=== PATIENT | female | born 1945 | race Caucasian/White ===

== ENCOUNTER 2023-03-21 10:30 | Outpatient (OUT) | payer MEDICARE, SELFPAY ==
--- NOTE | 2023-03-21 10:30 | VEIN_ITS ---
The [address] [address] Patient Name: SHARON JENSEN MRN: [id number] date: 1945 Sex: F Assigned Patient Location: Current Patient Location: Accession/Order Number: [id number] Exam Date: 03/21/2023 10:30 Report Date: 03/21/2023 11:47 At the request of: NINI OVALLE Procedure: VC INJ Foam Sclerosant WUS CHIEF RADIATION THERAPIST PROCEDURE: VC INJ Foam Sclerosant WUS CHIEF RADIATION THERAPIST COMPARISON: None. HISTORY: painful varicose veins I83.813 Pre-operative Diagnosis: CEAP class C6 venous insufficiency with pain, tenderness, edema and incompetent branch saphenous vein(s), chronic venous insufficiency left leg secondary to venous incompetence Post-operative Diagnosis: CEAP class C6 venous insufficiency with pain, tenderness, edema and incompetent branch saphenous vein(s), chronic venous insufficiency left leg secondary to venous incompetence Procedure Performed: 1. Ultrasound-guided microfoam chemical ablation with Varithenaregistered 2. Intraoperative ultrasound guidance Physician: Yovani Short M.D. Anesthesia: None Indications for Procedure: 77 year old female. Symptoms including chronic lower extremity pain, swelling, and extensive skin wounds ulceration for many years despite conservative medical therapy including medical compression stockings, exercise and analgesics. Prior procedures include endovenous laser ablation and microfoam chemical ablation. Multiple incompetent varicosities of the left leg. Duplex scan showed reflux and enlarged diameters up to 6 mm. The patient underwent informed consent including management options where the complications of infection, bleeding, pain, and skin injury were discussed. Particular attention was spent discussing thrombus extension and deep vein thrombosis as well as the possibility of pulmonary embolus and treatment with oral or injectable blood thinners. Procedure: The patient walked to the procedure room. All applicable staff donned appropriate apparel. A procedure timeout was performed to confirm correct patient, correct extremity, correct procedure, and correct room set-up including presence of all applicable supplies, devices, and drugs. A duplex ultrasound, performed by myself confirmed the location and incompetence of branch saphenous varicosities and their course was marked on the skin together with the dilated tributaries. The extent of treatment of the vein and the associated varicosities was determined through ultrasound mapping. The skin was prepped and then punctured with a butterfly needle and advanced under ultrasound guidance. The Varithenaregistered canister was activated and the canister was primed and purged as required in the instructions for use. Varithenaregistered was drawn into a sterile syringe. Varithenaregistered was slowly administered at 0.5-1.0 cc/second with close observation by ultrasound of its course in the vessels. Total volume utilized was: 13 mL (6 mL within a 5 mm varicosity of the distal medial lower left leg; 7 mL within a 6 mm varicosity of the mid medial upper leg). Following administration of Varithenaregistered the leg was elevated and the patient was asked to repeatedly dorsiflex the ankle to limit flow of Varithenaregistered into perforating veins. Once appropriate spasm had been confirmed in the treated veins, the vascular catheter was removed from the leg and light pressure was applied over the puncture site for hemostasis. The common femoral and deep superficial veins were then evaluated for flow and compressibility prior to dressing placement. The lower extremity was kept elevated at 45 degrees above the horizontal and cording material was applied over the saphenous segments and tributaries to allow for eccentric compression over the target vessels including the targeted saphenous vein(s). A multilayer dressing was applied consisting of foam pads, coban and thigh-high 20-30 mm Hg compression elastic support hose were placed on the patient. The leg was lowered only after compression had been applied and the patient was immediately ambulatory. The patient ambulated 10 minutes under supervision and was without apparent concerns at time of release. Post-care instructions include advising patient to keep post-treatment bandages in place and dry for 48 hours, avoid extended periods of inactivity, avoid heavy exercise for one week, wear compression stockings on the treated leg continuously for two weeks, to walk daily for 10 minutes over the next month. The patient was instructed to take an anti-inflammatory medicine as needed and to follow up for color duplex scan of the Saphenous veins, the treated branch saphenous varicosities, the adjacent deep veins, and additional treatment within 7 days. PERSONNEL: Robson Proctor RN Electronically authenticated by: YOVANI SHORT Date: 03/21/2023 11:47
== END 2023-03-22 00:01 | disposition home or self-care (01) ==
LOC: VC 04-29 12:54
PROVIDERS: PCP Radiology Diagnostic Radiology; Visit Provider Radiology Diagnostic Radiology
DX: I83.813 Varicose veins of bilateral lower extremities with pain (principal)
CPT/HCPCS: 36466

== ENCOUNTER 2023-03-26 12:58 | Outpatient (OUT) | payer MEDICARE, SELFPAY ==
--- NOTE | 2023-03-26 | VEIN_ITS ---
Patient: SHARON JENSEN Exam Date: 03/26/2023 : 1945 Gender:F Ordering : DR NINI OVALLE M.D. Admission #: [id number] Family : Order #: [id number] CLICK HERE TO VIEW EXAM RADIOLOGY REPORT PROCEDURE: [facility] - OFFICE VISIT FOLLOW UP COMPARISON: None. PROGRESS NOTES: The patient reports that there is continuing healing of lower left leg extensive wounds. There has been interval reduction in varicosities. The patient has followed our recommendations to walk 20-30 minutes once or twice per day since the procedure. Physical exam demonstrates no evidence of postprocedural infection, ongoing healing of extensive skin wounds, and decrease in varicosities of the left leg. Persistent varicosities are identified along the right leg. Review of the ultrasound performed the same day demonstrates occlusive thrombus extending throughout the treated vein, see separate report, consistent with a successful ablation. No thrombus extending into or beyond the saphenofemoral junction. The patient expressed a desire to proceed with treatment of right lower extremity dilated and incompetent veins. The patient was informed that treatment was a process and would require approximately several procedures/sessions. IMPRESSION: 1. Successful ablation of the left lower extremity treated incompetent branch saphenous varicosities. 2. Persistent incompetent varicose veins and right lower extremity symptoms PLAN: Treatment of right lower extremity beginning with endovenous laser ablation of right great saphenous vein. Nurse notes, history and physical were reviewed and confirmed, see attached forms. The nurse was present throughout the physical exam and consultation Dictated by: Yovani Short M.D. on 03/26/2023 at 14:27 Approved by: Yovani Short M.D. on 03/26/2023 at 14:30
--- NOTE | 2023-03-26 | VEIN_ITS ---
Patient: SHARON JENSEN Exam Date: 03/26/2023 : 1945 Gender:F Ordering : DR NINI OVALLE M.D. Admission #: [id number] Family : Order #: [id number] CLICK HERE TO VIEW EXAM RADIOLOGY REPORT PROCEDURE: VC EXT VENOUS LT LIMITED COMPARISON: None. INDICATIONS: Phlebitis of superficial veins of lt lower extremity I80.02 TECHNIQUE: Lower extremity jara scale and Duplex Doppler evaluation of the deep venous system from the inguinal ligament through the calf veins. FINDINGS: REGION: Left lower extremity. THROMBI: Negative for DVT. Chemically induced thrombus in varicose veins left lower extremity. COMPRESSIBILITY: Non-compressible segments. FLOW: Areas of no flow. OTHER: Patent varicose vein mid medial thigh measures 4.2 mm with 0.6s reflux. Patent lower leg GSV 4.5mm with 4.6s reflux. CONCLUSION: 1. Successful post ablation occlusion of treated branch saphenous varicosities within the left leg. Dictated by: Yovani Short M.D. on 03/26/2023 at 14:26 Approved by: Yovani Short M.D. on 03/26/2023 at 14:27
== END 2023-03-26 12:59 ==
LOC: VC 12:58
PROVIDERS: PCP Radiology Diagnostic Radiology; Visit Provider Radiology Diagnostic Radiology
DX: I80.02 Phlebitis and thrombophlebitis of superficial vessels of left lower extremity (principal)
CPT/HCPCS: 93971; G0463

== ENCOUNTER 2023-07-24 14:32 | Outpatient (OUT) | payer MEDICARE, SELFPAY ==
--- NOTE | 2023-07-24 14:36 | VEIN_ITS ---
The [address] [address] Patient Name: SHARON JENSEN MRN: [id number] date: 1945 Sex: F Assigned Patient Location: Current Patient Location: Accession/Order Number: [id number] Exam Date: 07/24/2023 14:36 Report Date: 07/24/2023 16:18 At the request of: NINI OVALLE Procedure: VC Endovenous Ablation 1VeinRT EXAMINATION: VC Endovenous Ablation 1VeinRT HISTORY: Pain due to varicose veins of bilateral legs I83.813 The risks and benefits of the procedure had been previously discussed, and were rediscussed at length. Informed written consent was obtained. Deedee Childs RN and Iliana Gonzalez RDMS, RVT assisted. Time out procedure was performed. The right lower extremity was prepared and draped in the usual sterile fashion to allow knee flexion in the sterile field. Duplex ultrasound probe was draped in a sterile cover, sterile transmission gel was used. Venous mapping was performed with the areas of dilation and large tributaries marked. The total length was 26 cm from the entry proximal calf to 3 cm below the Saphenofemoral junction. The diameter of the right great saphenous vein ranged from 6.6 mm. A 30 gauge needle and 1% buffered lidocaine was used to anesthetize the entry site. A 4 mm incision was made with a scalpel and the saphenous vein was entered percutaneously under direct ultrasound guidance with a micropuncture set, a single stick was successful in gaining access. A micro-guide wire was inserted and the needle removed. A micro-set including a dilator was inserted over the microwire and the needle and dilator were removed. A guide wire was inserted through the micro-set and guided through the saphenous vein to the saphenofemoral junction. The dilator was removed and an introducer sheath was inserted over the wire until the end of the sheath entered the saphenofemoral junction. The dilator and wire were removed and the 600 micron fiber was introduced and placed and positioned so that it extended beyond the sheath and was 3 cm distal to the saphenofemoral or saphenopopliteal junction. Final position of the fiber was determined by ultrasound guidance and duplex imaging. Tumescent anesthetic was delivered by ultrasound guidance. 200 cc of fluid was delivered along the entire course of the saphenous vein. The solution consisted of 1000 cc of normal saline with 40 mL of 1% lidocaine and 20 mL of sodium bicarbonate. A final positioning check was made. The energy source was turned on by means of the foot pedal and the fiber and sheath were withdrawn. The total number of Joules delivered was 1069. The laser was active for 134 seconds under continuous pulse, average laser use of 8 J. Laser start time 3:42 PM, 07/24/2023. Laser stop time 3:44 PM, 07/24/2023. A duplex ultrasound revealed compressibility and flow at the saphenofemoral junction immediately after the procedure. Hemostasis at the access site was achieved. The skin incision of the saphenous vein was closed with a 4 x 4. A compression stocking was applied. Postop instructions were given. A follow up appointment was recommended and scheduled. The patient tolerated the procedure well. Electronically authenticated by: DEVANTE WEN Date: 07/24/2023 16:18
[2023-07-24] MEDS: LIDOCAINE HCL 1% 100 MG/10 ML MDV INJ (15:14)
[2023-07-24] MEDS: 0.9 % SODIUM CHLORIDE 500 ML, LIDOCAINE HCL 20 ML, SODIUM BICARBONATE 10 MEQ INJ (15:15)
== END 2023-07-24 14:33 | disposition home or self-care (01) ==
LOC: VC 14:32
PROVIDERS: PCP Radiology Diagnostic Radiology; Visit Provider Radiology Diagnostic Radiology
DX: I83.813 Varicose veins of bilateral lower extremities with pain (principal)
CPT/HCPCS: 36478

== ENCOUNTER 2023-08-01 09:55 | Outpatient (OUT) | payer MEDICARE, SELFPAY ==
--- NOTE | 2023-08-01 | VEIN_ITS ---
Patient: SHARON JENSEN Exam Date: 08/01/2023 : 1945 Gender:F Ordering : DR SEBASTIAN KHAN M.D. Admission #: [id number] Family : Order #: [id number] CLICK HERE TO VIEW EXAM RADIOLOGY REPORT PROCEDURE: VC EXT VENOUS RT LMTD COMPARISON: None. INDICATIONS: I80.01 TECHNIQUE: Lower extremity jara scale and Duplex Doppler evaluation of the deep venous system from the inguinal ligament through the calf veins. FINDINGS: REGION: Right lower extremity. THROMBI: Negative for DVT. Heat induced thrombus visualized in the 3.5 cm from the saphenfemoral junction and extends through the treated GSV to mid lower leg at point of insertion. COMPRESSIBILITY: Noncompressibility corresponding to thrombus FLOW: Absent flow corresponding to thrombus CONCLUSION: Post ablation occlusion the right great saphenous vein with heat induced thrombus 3.5 cm from the saphenofemoral junction Dictated by: Sebastian Khan MD on 08/01/2023 at 10:25 Approved by: Sebastian Khan MD on 08/01/2023 at 10:28
--- NOTE | 2023-08-01 | VEIN_ITS ---
Patient: SHARON JENSEN Exam Date: 08/01/2023 : 1945 Gender:F Ordering : DR SEBASTIAN KHAN M.D. Admission #: [id number] Family : Order #: [id number] CLICK HERE TO VIEW EXAM RADIOLOGY REPORT PROCEDURE: [facility] - OFFICE VISIT FOLLOW UP [facility] PROGRESS NOTES: The patient reports no significant problems following intravenous laser ablation of the right great saphenous vein. The patient did not require oral analgesics. The patient has worn her compression wraps. Patient has tried exercise within her abilities. Physical exam demonstrates no areas of bruising or erythema. No evidence of thrombophlebitis. No active ulceration on the right leg. Extensive hemosiderin staining. Subcutaneous edema and skin thickening. Review of the ultrasound performed the same day demonstrates occlusive thrombus extending throughout the treated right great saphenous vein with heat induced thrombus 3.5 cm from the saphenofemoral junction. The patient expressed a desire to proceed with treatment of right leg incompetent varicose veins. VEIN/[facility] EST LMTD IMPRESSION: 1. Successful ablation of the right great saphenous vein(s). 2. Persistent right incompetent varicose veins. PLAN: Micro foam chemical ablation right leg incompetent varicose veins Nurse notes, history and physical were reviewed and confirmed, see attached forms. The nurse was present throughout the physical exam and consultation Dictated by: Sebastian Khan MD on 08/01/2023 at 10:42 Approved by: Sebastian Khan MD on 08/01/2023 at 10:44
== END 2023-08-01 09:56 | disposition home or self-care (01) ==
LOC: VC 09:55
PROVIDERS: PCP Radiology Diagnostic Radiology; Visit Provider Radiology Diagnostic Radiology
DX: I80.01 Phlebitis and thrombophlebitis of superficial vessels of right lower extremity (principal)
CPT/HCPCS: 93971; G0463

== ENCOUNTER 2023-08-14 08:58 | Outpatient (OUT) | payer MEDICARE, SELFPAY ==
--- NOTE | 2023-08-14 | VEIN_ITS ---
The [address] [address] Patient Name: SHARON JENSEN MRN: [id number] date: 1945 Sex: F Assigned Patient Location: Current Patient Location: Accession/Order Number: [id number] Exam Date: 08/14/2023 09:00 Report Date: 08/14/2023 10:36 At the request of: NINI OVALLE Procedure: VC INJ Foam Sclerosant WUS INVERTER AND CLIPPER PROCEDURE: VC INJ Foam Sclerosant WUS [employer]TER AND [employer]IPPER COMPARISON: None. HISTORY: Pain due to varicose veins of bilateral legs I83.813 Pre-operative Diagnosis: CEAP class C6 venous insufficiency with pain, tenderness, edema and incompetent saphenous and varicose vein(s), chronic venous insufficiency left leg secondary to venous incompetence Post-operative Diagnosis: CEAP class C6 venous insufficiency with pain, tenderness, edema and incompetent saphenous and varicose vein(s), chronic venous insufficiency left leg secondary to venous incompetence Procedure Performed: 1. Ultrasound-guided microfoam chemical ablation with Varithenaregistered 2. Intraoperative ultrasound guidance Anesthesia: None Indications for Procedure: 78-year-old female who presents with a 15-20 years history of lower extremity pain swelling in varicose veins with extensive venous stasis ulcerations. The patient has failed extensive conservative and surgical therapy including medical compression stockings, exercise and analgesics. Prior procedures include endovenous laser ablation and micropuncture collection. Multiple incompetent varicosities of the left leg. Duplex scan showed reflux and enlarged diameters up to 8 mm. The patient underwent informed consent including management options where the complications of infection, bleeding, pain, and skin injury were discussed. Particular attention was spent discussing thrombus extension and deep vein thrombosis as well as the possibility of pulmonary embolus and treatment with oral or injectable blood thinners. Procedure: The patient walked to the procedure room. All applicable staff donned appropriate apparel. A procedure timeout was performed to confirm correct patient, correct extremity, correct procedure, and correct room set-up including presence of all applicable supplies, devices, and drugs. A duplex ultrasound, performed by myself confirmed the location and incompetence of branch saphenous varicosities and their course was marked on the skin together with the dilated tributaries. The extent of treatment of the vein and the associated varicosities was determined through ultrasound mapping. The skin was prepped and then punctured with a butterfly needle and advanced under ultrasound guidance. The Varithenaregistered canister was activated and the canister was primed and purged as required in the instructions for use. Varithenaregistered was drawn into a sterile syringe. The following injections were made: 10 cc injected into an 8 mm varicose vein proximal medial lower leg 5 cc injected into a 5 mm varicose vein left medial knee Varithenaregistered was slowly administered at 0.5-1.0 cc/second with close observation by ultrasound of its course in the vessels. Total volume utilized was: 15cc. Following administration of Varithenaregistered the leg was elevated and the patient was asked to repeatedly dorsiflex the ankle to limit flow of Varithenaregistered into perforating veins. Once appropriate spasm had been confirmed in the treated veins, the vascular catheter was removed from the leg and light pressure was applied over the puncture site for hemostasis. The common femoral and deep superficial veins were then evaluated for flow and compressibility prior to dressing placement. The lower extremity was kept elevated at 45 degrees above the horizontal and cording material was applied over the saphenous segments and tributaries to allow for eccentric compression over the target vessels including the targeted saphenous vein(s). A multilayer dressing was applied consisting of foam pads, coban and thigh-high 20-30 mm Hg compression elastic support hose were placed on the patient. The leg was lowered only after compression had been applied and the patient was immediately ambulatory. The patient ambulated 10 minutes under supervision and was without apparent concerns at time of release. Post-care instructions include advising patient to keep post-treatment bandages in place and dry for 48 hours, avoid extended periods of inactivity, avoid heavy exercise for one week, wear compression stockings on the treated leg continuously for two weeks, to walk daily for 10 minutes over the next month. The patient was instructed to take an anti-inflammatory medicine as needed and to follow up for color duplex scan of the Saphenous veins, the treated branch saphenous varicosities, the adjacent deep veins, and additional treatment within 7 days. PERSONNEL: Robson Proctor RN Electronically authenticated by: NINI OVALLE Date: 08/14/2023 10:36
== END 2023-08-14 08:59 | disposition home or self-care (01) ==
LOC: VC 08:59
PROVIDERS: PCP Radiology Diagnostic Radiology; Visit Provider Radiology Diagnostic Radiology
DX: I83.813 Varicose veins of bilateral lower extremities with pain (principal)
CPT/HCPCS: 36466

== ENCOUNTER 2023-08-21 10:49 | Outpatient (OUT) | payer MEDICARE, SELFPAY ==
--- NOTE | 2023-08-21 10:50 | VEIN_ITS ---
Patient Name: SHARON JENSEN MR#: [id number] : 1945 Exam Date: 08/21/2023 Ordering Doctor: DR NINI OVALLE M.D. RADIOLOGY REPORT PROCEDURE: VC EXT VENOUS LT LIMITED COMPARISON: VC EXT VENOUS LT LIMITED, 03/26/2023. INDICATIONS: Phlebitis of superficial veins of lt lower extremity I80.02 TECHNIQUE: Lower extremity jara scale and Duplex Doppler evaluation of the deep venous system from the inguinal ligament through the calf veins. FINDINGS: REGION: Left lower extremity. THROMBI: Negative for DVT. Varithena induced thrombus visualized at prox/med calf and medial knee. COMPRESSIBILITY: Non-compressible segments corresponding to thrombus FLOW: Areas of no flow. OTHER: CONCLUSION: 1. Successful post ablation occlusion of treated branch saphenous varicosities within the left leg. Dictated by: Yovani Short M.D. on 08/21/2023 at 11:48 Approved by: Yovani Short M.D. on 08/21/2023 at 11:49
--- NOTE | 2023-08-21 10:50 | VEIN_ITS ---
Patient Name: SHARON JENSEN MR#: [id number] : 1945 Exam Date: 08/21/2023 Ordering Doctor: DR NINI OVALLE M.D. RADIOLOGY REPORT PROCEDURE: [facility] EST [facility] - OFFICE VISIT FOLLOW [facility] PROGRESS NOTES: The patient reports improvement in leg symptoms. There has been interval reduction in varicosities. The patient has followed our recommendations to walk as much as she was able since the procedure. Physical exam demonstrates decrease in varicosities of the leg. No remaining varicosities within left leg. Notable increased in pinkness of skin and prior wounds consistent with revascularization and ongoing healing. Review of the ultrasound performed the same day demonstrates occlusive thrombus extending throughout the treated vein(s), see separate report, consistent with a successful ablation. No thrombus extending into or beyond the saphenofemoral junction. The patient expressed a desire to proceed with treatment of right leg incompetent branch saphenous varicosities. The patient was informed that treatment was a process and would require several procedures/sessions. VEIN/[facility] EST LMTD IMPRESSION: 1. Successful ablation of the treated left leg branch saphenous vein(s). 2. Persistent right leg varicose veins and lower extremity symptoms. PLAN: Microfoam chemical ablation of right leg incompetent branch saphenous varicosities. Nurse notes, history and physical were reviewed and confirmed, see attached forms. The nurse was present throughout the physical exam and consultation Dictated by: Yovani Short M.D. on 08/21/2023 at 11:49 Approved by: Yovani Short M.D. on 08/21/2023 at 11:53
== END 2023-08-21 10:50 | disposition home or self-care (01) ==
LOC: VC 10:49
PROVIDERS: PCP Radiology Diagnostic Radiology; Visit Provider Radiology Diagnostic Radiology
DX: I80.02 Phlebitis and thrombophlebitis of superficial vessels of left lower extremity (principal)
CPT/HCPCS: 93971; G0463

== ENCOUNTER 2023-08-26 11:50 | Outpatient (OUT) | payer MEDICARE, SELFPAY ==
--- NOTE | 2023-08-26 11:51 | VEIN_ITS ---
[address] [address] Patient Name: SHARON JENSEN MRN: [id number] date: 1945 Sex: F Assigned Patient Location: Current Patient Location: Accession/Order Number: [id number] Exam Date: 08/26/2023 11:20 Report Date: 08/26/2023 13:12 At the request of: NINI OVALLE Procedure: VC INJ Foam Sclerosant WUS FIELD MARKETING DIRECTOR PROCEDURE: VC INJ Foam Sclerosant WUS FIELD MARKETING DIRECTOR HISTORY: Pain due to varicose veins of bilateral legs I83.813 Pre-operative Diagnosis: CEAP class C6 venous insufficiency with pain, tenderness, edema and incompetent branch saphenous vein(s), chronic venous insufficiency right leg secondary to venous incompetence Post-operative Diagnosis: CEAP class C6 venous insufficiency with pain, tenderness, edema and incompetent branch saphenous vein(s), chronic venous insufficiency right leg secondary to venous incompetence Procedure Performed: 1. Ultrasound-guided microfoam chemical ablation with Varithenaregistered 2. Intraoperative ultrasound guidance Physician: Yovani Short M.D. Anesthesia: None Indications for Procedure: 78 year old female. Symptoms including lower extremity pain, swelling, dilated bulging veins, extensive wounds and skin changes for many years despite conservative medical therapy including medical compression stockings, exercise and analgesics. Prior procedures include endovenous laser ablation and microfoam chemical ablation. 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 Duplex scan showed reflux and enlarged diameters up to 5 mm. The patient underwent informed consent including management options where the complications of infection, bleeding, pain, and skin injury were discussed. Particular attention was spent discussing thrombus extension and deep vein thrombosis as well as the possibility of pulmonary embolus and treatment with oral or injectable blood thinners. Procedure: The patient walked to the procedure room. All applicable staff donned appropriate apparel. A procedure timeout was performed to confirm correct patient, correct extremity, correct procedure, and correct room set-up including presence of all applicable supplies, devices, and drugs. A duplex ultrasound, performed by myself confirmed the location and incompetence of branch saphenous varicosities and their course was marked on the skin together with the dilated tributaries. The extent of treatment of the vein and the associated varicosities was determined through ultrasound mapping. The skin was prepped and then punctured with a butterfly needle and advanced under ultrasound guidance. The Varithenaregistered canister was activated and the canister was primed and purged as required in the instructions for use. Varithenaregistered was drawn into a sterile syringe. Varithenaregistered was slowly administered at 0.5-1.0 cc/second with close observation by ultrasound of its course in the vessels. Total volume utilized was: 15 mL (8 mL into a 4 mm varicosity proximal anterior right knee; 7 mL into a 7 mm varicosity distal medial upper right leg). Following administration of Varithenaregistered the leg was elevated and the patient was asked to repeatedly dorsiflex the ankle to limit flow of Varithenaregistered into perforating veins. Once appropriate spasm had been confirmed in the treated veins, the vascular catheter was removed from the leg and light pressure was applied over the puncture site for hemostasis. The common femoral and deep superficial veins were then evaluated for flow and compressibility prior to dressing placement. The lower extremity was kept elevated at 45 degrees above the horizontal and cording material was applied over the saphenous segments and tributaries to allow for eccentric compression over the target vessels including the targeted saphenous vein(s). A multilayer dressing was applied consisting of foam pads, coban and thigh-high 20-30 mm Hg compression elastic support hose were placed on the patient. The leg was lowered only after compression had been applied and the patient was immediately ambulatory. The patient ambulated 10 minutes under supervision and was without apparent concerns at time of release. Post-care instructions include advising patient to keep post-treatment bandages in place and dry for 48 hours, avoid extended periods of inactivity, avoid heavy exercise for one week, wear compression stockings on the treated leg continuously for two weeks, to walk daily for 10 minutes over the next month. The patient was instructed to take an anti-inflammatory medicine as needed and to follow up for color duplex scan of the Saphenous veins, the treated branch saphenous varicosities, the adjacent deep veins, and additional treatment within 7 days. PERSONNEL: Robson Proctor RN Electronically authenticated by: YOVANI SHORT Date: 08/26/2023 13:12
== END 2023-08-26 11:51 | disposition home or self-care (01) ==
LOC: VC 11:50
PROVIDERS: PCP Radiology Diagnostic Radiology; Visit Provider Radiology Diagnostic Radiology
DX: I83.813 Varicose veins of bilateral lower extremities with pain (principal)
CPT/HCPCS: 36466

== ENCOUNTER 2023-09-02 14:30 | Outpatient (OUT) | payer MEDICARE, SELFPAY ==
--- NOTE | 2023-09-02 14:32 | VEIN_ITS ---
Patient Name: SHARON JENSEN MR#: [id number] : 1945 Exam Date: 09/02/2023 Ordering Doctor: DR NINI OVALLE M.D. RADIOLOGY REPORT PROCEDURE: VC EXT VENOUS RT LMTD COMPARISON: VC EXT VENOUS RT LMTD, 08/01/2023. INDICATIONS: Phlebitis of superficial veins of rt lower extremity I80.01 TECHNIQUE: Lower extremity jara scale and Duplex Doppler evaluation of the deep venous system from the inguinal ligament through the calf veins. FINDINGS: REGION: Right lower extremity. THROMBI: Negative for DVT. Varithena induced thrombus is visualized at dist/med thigh and prox/ant calf. COMPRESSIBILITY: Non-compressible segments corresponding to thrombus FLOW: Areas of no flow corresponding to thrombus OTHER: Multiple varicose veins visualized with the largest at mid/posterior calf 4.9mm with 1.1s reflux. CONCLUSION: 1. Successful post ablation occlusion of right leg treated branch saphenous varicosities. Dictated by: Yovani Short M.D. on 09/02/2023 at 15:06 Approved by: Yovani Short M.D. on 09/02/2023 at 15:06
--- NOTE | 2023-09-02 14:32 | VEIN_ITS ---
Patient Name: SHARON JENSEN MR#: [id number] : 1945 Exam Date: 09/02/2023 Ordering Doctor: DR NINI OVALLE M.D. RADIOLOGY REPORT PROCEDURE: [facility] - OFFICE VISIT FOLLOW UP [facility] PROGRESS NOTES: The patient reports improvement in leg symptoms. There has been interval reduction in varicosities. The patient has followed our recommendations to walk 20-30 minutes once or twice per day since the procedure. Physical exam demonstrates decrease in varicosities of the leg. Persistent incompetent varicosities are identified along the right leg. Review of the ultrasound performed the same day demonstrates occlusive thrombus extending throughout the treated vein(s), see separate report, consistent with a successful ablation. No thrombus extending into or beyond the saphenofemoral junction. The patient expressed a desire to proceed with treatment of remaining right leg incompetent varicosities. The patient was informed that treatment was a process and would require approximately 1 procedures/sessions. [facility]: 1. Successful ablation of the right leg treated branch saphenous vein(s). 2. Persistent right leg incompetent varicose veins and lower extremity symptoms. PLAN: Microfoam chemical ablation of remaining right leg incompetent branch saphenous varicosities. Nurse notes, history and physical were reviewed and confirmed, see attached forms. The nurse was present throughout the physical exam and consultation Dictated by: Yovani hSort M.D. on 09/02/2023 at 15:06 Approved by: Yovani Short M.D. on 09/02/2023 at 15:07
== END 2023-09-02 14:31 | disposition home or self-care (01) ==
LOC: VC 14:30
PROVIDERS: PCP Radiology Diagnostic Radiology; Visit Provider Radiology Diagnostic Radiology
DX: I80.01 Phlebitis and thrombophlebitis of superficial vessels of right lower extremity (principal)
CPT/HCPCS: 93971; G0463

== ENCOUNTER 2023-09-16 10:22 | Outpatient (OUT) | payer MEDICARE, SELFPAY ==
--- NOTE | 2023-09-16 10:26 | VEIN_ITS ---
The [address] [address] Patient Name: SHARON JENSEN MRN: [id number] date: 1945 Sex: F Assigned Patient Location: Current Patient Location: Accession/Order Number: [id number] Exam Date: 09/16/2023 10:28 Report Date: 09/16/2023 11:25 At the request of: NINI OVALLE Procedure: VC INJ Foam Sclerosant WUS SURGERY TEACHER PROCEDURE: VC INJ Foam Sclerosant WUS SURGERY TEACHER HISTORY: Pain due to varicose veins of bilateral legs I83.813 Pre-operative Diagnosis: CEAP class C6 venous insufficiency with pain, tenderness, edema and incompetent branch saphenous vein(s), chronic venous insufficiency right leg secondary to venous incompetence Post-operative Diagnosis: CEAP class C6 venous insufficiency with pain, tenderness, edema and incompetent branch saphenous vein(s), chronic venous insufficiency right leg secondary to venous incompetence Procedure Performed: 1. Ultrasound-guided microfoam chemical ablation with Varithenaregistered 2. Intraoperative ultrasound guidance Physician: Yovani Short M.D. Anesthesia: None Indications for Procedure: 78 year old female. Symptoms including lower extremity pain, swelling, dilated bulging veins, chronic skin changes and wounds for many years despite conservative medical therapy including medical compression stockings, exercise and analgesics. Prior procedures include endovenous laser ablation and microfoam chemical ablation. 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 Duplex scan showed reflux and enlarged diameters up to 5 mm. The patient underwent informed consent including management options where the complications of infection, bleeding, pain, and skin injury were discussed. Particular attention was spent discussing thrombus extension and deep vein thrombosis as well as the possibility of pulmonary embolus and treatment with oral or injectable blood thinners. Procedure: The patient walked to the procedure room. All applicable staff donned appropriate apparel. A procedure timeout was performed to confirm correct patient, correct extremity, correct procedure, and correct room set-up including presence of all applicable supplies, devices, and drugs. A duplex ultrasound, performed by myself confirmed the location and incompetence of branch saphenous varicosities and their course was marked on the skin together with the dilated tributaries. The extent of treatment of the vein and the associated varicosities was determined through ultrasound mapping. The skin was prepped and then punctured with a butterfly needle and advanced under ultrasound guidance. The Varithenaregistered canister was activated and the canister was primed and purged as required in the instructions for use. Varithenaregistered was drawn into a sterile syringe. Varithenaregistered was slowly administered at 0.5-1.0 cc/second with close observation by ultrasound of its course in the vessels. Total volume utilized was: 8 mL injected into a 5 mm varicosity just cephalad to the medial right ankle. Following administration of Varithenaregistered the leg was elevated and the patient was asked to repeatedly dorsiflex the ankle to limit flow of Varithenaregistered into perforating veins. Once appropriate spasm had been confirmed in the treated veins, the vascular catheter was removed from the leg and light pressure was applied over the puncture site for hemostasis. The common femoral and deep superficial veins were then evaluated for flow and compressibility prior to dressing placement. The lower extremity was kept elevated at 45 degrees above the horizontal and cording material was applied over the saphenous segments and tributaries to allow for eccentric compression over the target vessels including the targeted saphenous vein(s). A multilayer dressing was applied consisting of foam pads, coban and thigh-high 20-30 mm Hg compression elastic support hose were placed on the patient. The leg was lowered only after compression had been applied and the patient was immediately ambulatory. The patient ambulated 10 minutes under supervision and was without apparent concerns at time of release. Post-care instructions include advising patient to keep post-treatment bandages in place and dry for 48 hours, avoid extended periods of inactivity, avoid heavy exercise for one week, wear compression stockings on the treated leg continuously for two weeks, to walk daily for 10 minutes over the next month. The patient was instructed to take an anti-inflammatory medicine as needed and to follow up for color duplex scan of the Saphenous veins, the treated branch saphenous varicosities, the adjacent deep veins, and additional treatment within 7 days. PERSONNEL: Robson Proctor RN Electronically authenticated by: YOVANI SHORT Date: 09/16/2023 11:25
== END 2023-09-16 10:23 | disposition home or self-care (01) ==
LOC: VC 10:22
PROVIDERS: PCP Radiology Diagnostic Radiology; Visit Provider Radiology Diagnostic Radiology
DX: I83.813 Varicose veins of bilateral lower extremities with pain (principal)
CPT/HCPCS: 36466

== ENCOUNTER 2023-09-23 12:52 | Outpatient (OUT) | payer MEDICARE, SELFPAY ==
--- NOTE | 2023-09-23 12:53 | VEIN_ITS ---
Patient Name: SHARON JENSEN MR#: [id number] : 1945 Exam Date: 09/23/2023 Ordering Doctor: DR SEBASTIAN KHAN M.D. RADIOLOGY REPORT PROCEDURE: [facility] EST [facility] - OFFICE VISIT FOLLOW UP COMPARISON: [facility] EST [facility], 09/02/2023. [facility] EST L[facility], 08/21/2023. PROGRESS NOTES: The patient reports marked improvement in her initial presenting symptoms following our treatments. The patient had no problems following micro foam chemical ablation of the right leg. The patient did not require oral analgesics. The patient continues to wear the compression wraps as directed. The patient has difficulty exercising due to her physical condition Physical exam demonstrates marked reduction in erythema and skin thickening of both legs following her treatments with marked improvement in overall skin health. The patient continues to have several open ulcerations on the left leg however these are much improved. No ulcerations on the right leg. Review of the ultrasound performed the same day demonstrates occlusive thrombus extending throughout the treated right leg varicose veins. No residual varicose veins are observed. The patient's treatments are complete. She continues to see be seen by the wound Center for her ulcerations which are continuing to heal. I asked the patient return in 12 months for a follow-up visit. She could return if additional symptoms develop sooner. VEIN/[facility] EST LMTD IMPRESSION: 1. Successful ablation of treated right leg varicose veins 2. Treatment plan is complete. PLAN: Follow-up in 12 months Nurse notes, history and physical were reviewed and confirmed, see attached forms. The nurse was present throughout the physical exam and consultation Dictated by: Sebastian Khan MD on 09/23/2023 at 14:21 Approved by: Sebastian Khan MD on 09/23/2023 at 14:30
--- NOTE | 2023-09-23 12:53 | VEIN_ITS ---
Patient Name: SHARON JENESN MR#: [id number] : 1945 Exam Date: 09/23/2023 Ordering Doctor: DR SEBASTIAN KHAN M.D. RADIOLOGY REPORT PROCEDURE: VC EXT VENOUS RT LMTD COMPARISON: VC EXT VENOUS RT LMTD, 09/02/2023. VC EXT VENOUS RT LMTD, 08/01/2023. INDICATIONS: I80.01 Phlebitis of superficial veins of rt lower extremity TECHNIQUE: Lower extremity jara scale and Duplex Doppler evaluation of the deep venous system from the inguinal ligament through the calf veins. FINDINGS: REGION: Right lower extremity. THROMBI: Negative for DVT. Varithena induced thrombus visualized medial ankle. COMPRESSIBILITY: Non-compressible segments corresponding to thrombus FLOW: Areas of absent flow corresponding to thrombus OTHER: No patent varicose veins remain. CONCLUSION: Post ablation occlusion of treated right leg incompetent varicose veins. No significant patent incompetent varicose veins remain Dictated by: Sebastian Khan MD on 09/23/2023 at 13:17 Approved by: Sebastian Khan MD on 09/23/2023 at 13:18
== END 2023-09-23 12:53 | disposition home or self-care (01) ==
LOC: VC 12:52
PROVIDERS: PCP Radiology Diagnostic Radiology; Visit Provider Radiology Diagnostic Radiology
DX: I80.01 Phlebitis and thrombophlebitis of superficial vessels of right lower extremity (principal)
CPT/HCPCS: 93971; G0463